=== PATIENT | female | born 1940 | race Caucasian/White ===

== ENCOUNTER 2020-01-20 14:52 | Outpatient (RCR) | payer MEDICAID, SELFPAY | END 2020-01-20 23:59 | disposition home or self-care (01) | LOC: ANHAUDIO 14:52 | PROVIDERS: PCP Family Medicine; Visit Provider Family Medicine | DX: Z46.1 Encounter for fitting and adjustment of hearing aid (principal) | CPT/HCPCS: 99199; V5014 ==